=== PATIENT | female | born 1985 | race Caucasian/White ===

== ENCOUNTER 2023-10-12 13:38 | Emergency (ER) | payer MEDICAID ==
[~2023-10-12] VITALS: Ht 154.9 cm; Wt 68.3 kg
[2023-10-12] MEDS: dexamethasone sod phosphate 10mg/ml inj IM STA (15:03)
[2023-10-12] MEDS: ketorolac trometh inj. 60 MG/2 ML VIAL IM ONE (15:04)
[2023-10-12] MEDS ORDERED: CYCL-1 PO (15:49)
[2023-10-12] MEDS ORDERED: PRED20TA PO (15:49)
[2023-10-12 16:01] VITALS: BP 105/68; PULSE 84; RESP 17; TEMP 98.1; O2SAT 97
== END 2023-10-12 16:02 | disposition home or self-care (01) ==
LOC: ER 13:40
DX: B34.9 Viral infection, unspecified (principal); Z79.899 Other long term (current) drug therapy
CPT/HCPCS: 71045; 87502; 87503; 96372; 99284; J1100; J1885

== ENCOUNTER 2023-11-14 20:56 | Emergency (ER) | payer MEDICAID ==
[~2023-11-14] VITALS: Ht 154.9 cm; Wt 70.5 kg
[~2023-11-14 20:56] MED LIST: CYCL-1 PO
[2023-11-14 21:27] VITALS: BP 113/82; PULSE 93; RESP 16; TEMP 98; O2SAT 98
== END 2023-11-15 02:26 | disposition left against medical advice (07) ==
LOC: ER 20:57
DX: G43.909 Migraine, unspecified, not intractable, without status migrainosus (principal); Z53.21 Procedure and treatment not carried out due to patient leaving prior to being seen by health care provider
CPT/HCPCS: 99281